=== PATIENT | female | born 1980 | race Two or more races ===

== ENCOUNTER 2018-03-29 09:12 | Outpatient (CLI) | payer OTHER ==
[2018-04-01] MEDS ORDERED: FEOSOL325 MG PO (09:19)
== END 2018-03-29 09:20 | disposition home or self-care (01) ==
LOC: LAB 09:12
DX: D25.0 Submucous leiomyoma of uterus (principal); D64.9 Anemia, unspecified; N39.0 Urinary tract infection, site not specified; I10 Essential (primary) hypertension

== ENCOUNTER 2018-03-29 10:05 | Outpatient (CLI) | payer OTHER ==
[2018-04-01] MEDS ORDERED: FEOSOL325 MG PO (09:19)
== END 2018-03-29 10:06 | disposition home or self-care (01) ==
LOC: RAD 10:05
DX: D25.0 Submucous leiomyoma of uterus (principal); I10 Essential (primary) hypertension

== ENCOUNTER 2018-04-05 07:07 | Day surgery (SDC) | payer OTHER ==
[~2018-04-05 07:07] MED LIST: FEOSOL325 MG PO
[2018-04-05] MEDS ORDERED: NAPROXEN SODIU550 M1 PO (11:36)
== END 2018-04-05 16:50 | disposition home or self-care (01) ==
LOC: CIR.AMB 07:07
DX: N84.0 Polyp of corpus uteri (principal)

== ENCOUNTER 2019-05-18 18:57 | Inpatient (IN) | payer OTHER ==
[~2019-05-18] VITALS: Ht 162.6 cm; Wt 0.5 kg
[~2019-05-18 18:57] MED LIST changes: +NAPROXEN SODIU550 M1 PO
[2019-05-18] MEDS ORDERED: PRENATAL TABLE1 EAC1 PO (22:05)
[2019-05-18] MEDS ORDERED: ASA81 MG PO (22:06)
[2019-05-27] MEDS ORDERED: NIFEDIPINE ER30 MG PO (07:11)
[2019-05-27] MEDS ORDERED: IBUPROFEN800 MG PO (07:11)
[2019-05-27] MEDS ORDERED: LABETALOL HCL200 MG PO ×2 (07:11→07:15)
== END 2019-05-27 15:05 | disposition home or self-care (01) | DRG 786 ==
LOC: LDR 18:57 → OB/GYN 18:57 → LDR 19:12 → OB/GYN 05-20 07:54
PROVIDERS: ADMIT Obstetrics & Gynecology
PROC: 4A0HXFZ Measurement of Products of Conception, Cardiac Rhythm, External Approach (ICD-10-PCS; 2019-05-18)
PROC: BY4CZZZ Ultrasonography of Second Trimester, Single Fetus (ICD-10-PCS; 2019-05-18)
PROC: 3E0F7GC Introduction of Other Therapeutic Substance into Respiratory Tract, Via Natural or Artificial Opening (ICD-10-PCS; 2019-05-18)
PROC: B246ZZZ Ultrasonography of Right and Left Heart (ICD-10-PCS; 2019-05-22)
PROC: 10D00Z1 Extraction of Products of Conception, Low, Open Approach (ICD-10-PCS; principal; 2019-05-26)
DX: O82 Encounter for cesarean delivery without indication (principal); O14.12 Severe pre-eclampsia, second trimester; O13.2 Gestational [pregnancy-induced] hypertension without significant proteinuria, second trimester; O99.012 Anemia complicating pregnancy, second trimester; D50.8 Other iron deficiency anemias; J45.998 Other asthma; J20.8 Acute bronchitis due to other specified organisms; Z37.0 Single live birth; Z3A.25 25 weeks gestation of pregnancy

== ENCOUNTER → 2019-06-03 | Emergency (ER) | payer OTHER ==
[~2019-06-03] VITALS: Ht 162.6 cm; Wt 92.1 kg
[~2019-06-03] MED LIST changes: +AMOX-CLAV 875-1 EACH; +ASA81 MG PO; +IBUPROFEN800 MG PO; +LABETALOL HCL200 MG PO; +NIFEDIPINE ER30 MG PO; +PRENATAL TABLE1 EAC1 PO
== END | disposition home or self-care (01) ==
LOC: ER 09:29
DX: T81.89XA Other complications of procedures, not elsewhere classified, initial encounter (principal); O94 Sequelae of complication of pregnancy, childbirth, and the puerperium

== ENCOUNTER 2019-12-15 20:18 | Emergency (ER) | payer OTHER ==
[~2019-12-15] VITALS: Ht 162.6 cm; Wt 87.1 kg
[2019-12-15] MEDS ORDERED: IRON325 MG PO (22:21)
== END 2019-12-15 22:49 | disposition home or self-care (01) ==
LOC: ER 20:18
DX: R42 Dizziness and giddiness (principal); D64.9 Anemia, unspecified

== ENCOUNTER 2020-12-04 09:29 | Outpatient (CLI) | payer OTHER ==
[~2020-12-04 09:29] MED LIST changes: +IRON325 MG PO
== END 2020-12-04 09:44 | disposition home or self-care (01) ==
LOC: LAB 09:29
PROVIDERS: ATTEND Internal Medicine Hematology & Oncology
DX: D50.8 Other iron deficiency anemias (principal); I10 Essential (primary) hypertension; R74.02 Elevation of levels of lactic acid dehydrogenase [LDH]; K76.89 Other specified diseases of liver; D55.0 Anemia due to glucose-6-phosphate dehydrogenase [G6PD] deficiency; D63.8 Anemia in other chronic diseases classified elsewhere; D51.0 Vitamin B12 deficiency anemia due to intrinsic factor deficiency; E03.8 Other specified hypothyroidism; E06.3 Autoimmune thyroiditis; C56.9 Malignant neoplasm of unspecified ovary; R97.8 Other abnormal tumor markers; R97.1 Elevated cancer antigen 125 [CA 125]; R97.0 Elevated carcinoembryonic antigen [CEA]; D50.0 Iron deficiency anemia secondary to blood loss (chronic); N92.0 Excessive and frequent menstruation with regular cycle; R94.31 Abnormal electrocardiogram [ECG] [EKG]

== ENCOUNTER 2020-12-11 14:59 | Outpatient (CLI) | payer OTHER | END 2020-12-11 15:06 | disposition home or self-care (01) | LOC: MAMO-SONO 14:59 | PROVIDERS: ATTEND Internal Medicine Hematology & Oncology | DX: Z12.31 Encounter for screening mammogram for malignant neoplasm of breast (principal); N64.59 Other signs and symptoms in breast; D50.0 Iron deficiency anemia secondary to blood loss (chronic); I10 Essential (primary) hypertension; N92.0 Excessive and frequent menstruation with regular cycle; D50.8 Other iron deficiency anemias ==

== ENCOUNTER 2021-01-28 13:43 | Outpatient (CLI) | payer OTHER | END 2021-01-28 14:35 | disposition home or self-care (01) | LOC: SONOGRAMA 13:43 | PROVIDERS: ATTEND Internal Medicine Hematology & Oncology | DX: E06.5 Other chronic thyroiditis (principal); D50.8 Other iron deficiency anemias; N92.0 Excessive and frequent menstruation with regular cycle; D51.0 Vitamin B12 deficiency anemia due to intrinsic factor deficiency; D51.1 Vitamin B12 deficiency anemia due to selective vitamin B12 malabsorption with proteinuria; I10 Essential (primary) hypertension; E06.3 Autoimmune thyroiditis ==

== ENCOUNTER 2021-02-20 14:17 | Outpatient (CLI) | payer OTHER | END 2021-02-20 14:43 | disposition home or self-care (01) | LOC: LAB 14:17 | PROVIDERS: ATTEND Internal Medicine Rheumatology | DX: D68.61 Antiphospholipid syndrome (principal); K70.0 Alcoholic fatty liver; R12 Heartburn ==

== ENCOUNTER → 2021-02-20 | Outpatient (CLI) | payer OTHER | END | disposition home or self-care (01) | LOC: RAD 13:20 | DX: M99.01 Segmental and somatic dysfunction of cervical region (principal); M99.02 Segmental and somatic dysfunction of thoracic region; M99.03 Segmental and somatic dysfunction of lumbar region; M99.04 Segmental and somatic dysfunction of sacral region ==

== ENCOUNTER 2021-03-06 15:00 | Outpatient (CLI) | payer OTHER | END 2021-03-06 15:31 | disposition home or self-care (01) | LOC: SONOGRAMA 15:00 | PROVIDERS: ATTEND Obstetrics & Gynecology | DX: N94.89 Other specified conditions associated with female genital organs and menstrual cycle (principal); N94.0 Mittelschmerz; R10.2 Pelvic and perineal pain ==

== ENCOUNTER 2021-04-13 13:03 | Outpatient (CLI) | payer OTHER | END 2021-04-13 13:19 | disposition home or self-care (01) | LOC: LAB 13:03 | PROVIDERS: ATTEND Internal Medicine Hematology & Oncology | DX: D50.8 Other iron deficiency anemias (principal); R79.89 Other specified abnormal findings of blood chemistry; I10 Essential (primary) hypertension; R74.02 Elevation of levels of lactic acid dehydrogenase [LDH]; K76.89 Other specified diseases of liver; C56.9 Malignant neoplasm of unspecified ovary; R97.1 Elevated cancer antigen 125 [CA 125]; R97.0 Elevated carcinoembryonic antigen [CEA]; R97.8 Other abnormal tumor markers; D51.8 Other vitamin B12 deficiency anemias; N92.0 Excessive and frequent menstruation with regular cycle; D51.0 Vitamin B12 deficiency anemia due to intrinsic factor deficiency; E06.3 Autoimmune thyroiditis ==

== ENCOUNTER → 2021-05-06 10:02 | Outpatient (CLI) | payer OTHER | END | disposition home or self-care (01) | LOC: LAB 05-01 13:55 | DX: E55.9 Vitamin D deficiency, unspecified (principal); M25.50 Pain in unspecified joint; M54.5 Low back pain; M45.9 Ankylosing spondylitis of unspecified sites in spine; M32.9 Systemic lupus erythematosus, unspecified; H04.123 Dry eye syndrome of bilateral lacrimal glands ==

== ENCOUNTER 2023-02-18 12:17 | Outpatient (CLI) | payer OTHER | END 2023-02-18 12:44 | disposition home or self-care (01) | LOC: MAMO-SONO 12:17 | PROVIDERS: ATTEND Obstetrics & Gynecology | DX: N63.0 Unspecified lump in unspecified breast (principal); N64.59 Other signs and symptoms in breast; N64.9 Disorder of breast, unspecified; N94.0 Mittelschmerz; R10.2 Pelvic and perineal pain; N94.89 Other specified conditions associated with female genital organs and menstrual cycle ==

== ENCOUNTER 2023-02-18 13:40 | Outpatient (CLI) | payer OTHER | END 2023-02-18 13:55 | disposition home or self-care (01) | LOC: LAB 13:40 | PROVIDERS: ATTEND Obstetrics & Gynecology | DX: Z00.00 Encounter for general adult medical examination without abnormal findings (principal); I10 Essential (primary) hypertension; E03.9 Hypothyroidism, unspecified; E78.00 Pure hypercholesterolemia, unspecified; N39.0 Urinary tract infection, site not specified; Z11.4 Encounter for screening for human immunodeficiency virus [HIV]; Z12.11 Encounter for screening for malignant neoplasm of colon; E55.9 Vitamin D deficiency, unspecified; Z21 Asymptomatic human immunodeficiency virus [HIV] infection status; R79.9 Abnormal finding of blood chemistry, unspecified; R79.89 Other specified abnormal findings of blood chemistry ==

== ENCOUNTER 2023-04-10 15:29 | Outpatient (CLI) | payer OTHER | END 2023-04-10 15:30 | disposition home or self-care (01) | LOC: LAB 15:29 | PROVIDERS: ATTEND Internal Medicine Hematology & Oncology | DX: D50.8 Other iron deficiency anemias (principal); R79.9 Abnormal finding of blood chemistry, unspecified; I10 Essential (primary) hypertension; R74.02 Elevation of levels of lactic acid dehydrogenase [LDH]; K76.89 Other specified diseases of liver; D50.0 Iron deficiency anemia secondary to blood loss (chronic); N92.0 Excessive and frequent menstruation with regular cycle; D51.0 Vitamin B12 deficiency anemia due to intrinsic factor deficiency; D51.1 Vitamin B12 deficiency anemia due to selective vitamin B12 malabsorption with proteinuria; E06.3 Autoimmune thyroiditis; M32.9 Systemic lupus erythematosus, unspecified ==

== ENCOUNTER 2025-09-21 11:23 | Outpatient (CLI) | payer OTHER | END 2025-09-21 11:27 | disposition home or self-care (01) | LOC: MAMO-SONO 11:23 | PROVIDERS: ATTEND Internal Medicine Hematology & Oncology | DX: N64.4 Mastodynia (principal); N63.0 Unspecified lump in unspecified breast; D50.0 Iron deficiency anemia secondary to blood loss (chronic); N92.0 Excessive and frequent menstruation with regular cycle; D51.0 Vitamin B12 deficiency anemia due to intrinsic factor deficiency; D51.1 Vitamin B12 deficiency anemia due to selective vitamin B12 malabsorption with proteinuria; I10 Essential (primary) hypertension; E06.3 Autoimmune thyroiditis; M32.9 Systemic lupus erythematosus, unspecified; E04.2 Nontoxic multinodular goiter; E04.1 Nontoxic single thyroid nodule ==

== ENCOUNTER 2025-10-05 10:41 | Outpatient (CLI) | payer OTHER ==
[2025-10-07 06:07] LABS: CA 125 38.1 U/mL (0.0-38.1); CA 15-3 22.1 U/mL (0.0-25.0)
== END 2025-10-05 11:11 | disposition home or self-care (01) ==
LOC: LAB 10:41
PROVIDERS: ATTEND Internal Medicine Hematology & Oncology
DX: D50.0 Iron deficiency anemia secondary to blood loss (chronic) (principal); N92.0 Excessive and frequent menstruation with regular cycle; D51.0 Vitamin B12 deficiency anemia due to intrinsic factor deficiency; D51.1 Vitamin B12 deficiency anemia due to selective vitamin B12 malabsorption with proteinuria; I10 Essential (primary) hypertension; E06.3 Autoimmune thyroiditis; M32.9 Systemic lupus erythematosus, unspecified; N63.10 Unspecified lump in the right breast, unspecified quadrant; E04.2 Nontoxic multinodular goiter; C50.919 Malignant neoplasm of unspecified site of unspecified female breast; R97.8 Other abnormal tumor markers; C56.9 Malignant neoplasm of unspecified ovary; R97.0 Elevated carcinoembryonic antigen [CEA]